=== PATIENT | male | born 2000 | race African-American/Black ===

== ENCOUNTER 2019-04-29 20:30 | Emergency (ER) | payer SELFPAY ==
[2019-04-29 20:48] VITALS: Wt 112.7 kg
[2019-04-29] MEDS ORDERED: ZPAK PO (21:44)
[2019-04-29 21:56] VITALS: BP 118/77
== END 2019-04-29 21:57 | disposition home or self-care (01) ==
LOC: D.ER 20:30
DX: J06.9 Acute upper respiratory infection, unspecified (principal); R05 Cough; F17.210 Nicotine dependence, cigarettes, uncomplicated

== ENCOUNTER 2019-09-14 21:48 | Emergency (ER) | payer SELFPAY ==
[~2019-09-14] VITALS: Ht 182.9 cm; Wt 98.6 kg
[~2019-09-14 21:48] MED LIST: ZPAK PO
[2019-09-14 21:50] VITALS: BP 117/70; Ht 182.9 cm; Wt 98.6 kg
[2019-09-14] MEDS ORDERED: VENTOLIN HFA [SP8 GM INH (22:21)
[2019-09-14] MEDS ORDERED: STERAPRED DS 1010 MG PO (22:21)
== END 2019-09-14 23:13 | disposition home or self-care (01) ==
LOC: D.ER 21:48
DX: J45.901 Unspecified asthma with (acute) exacerbation (principal); Z72.0 Tobacco use; R06.02 Shortness of breath